=== PATIENT | female | born 1985 | race Caucasian/White ===

== ENCOUNTER 2019-09-19 14:33 | Emergency (ER) | payer OTHER ==
[~2019-09-19] VITALS: Ht 167.6 cm; Wt 75.0 kg
[2019-09-19 16:25] VITALS: BP 94/59; PULSE 56; TEMP 98.2
== END 2019-09-19 16:26 | disposition home or self-care (01) ==
LOC: COL.ER 14:33
DX: R07.89 Other chest pain (principal); Z98.82 Breast implant status; V89.2XXA Person injured in unspecified motor-vehicle accident, traffic, initial encounter